=== PATIENT | male | born 1990 | race Caucasian/White ===

== ENCOUNTER 2018-01-03 04:59 | Emergency (ER) | payer OTHER, MEDICAID, SELFPAY ==
[2018-01-03 05:11] VITALS: BP 121/78; PULSE 90; RESP 16; TEMP 36.8; O2SAT 97; BMI 28.0
--- NOTE | 2018-01-03 05:13 | ED_ITS ---
HPI - Male Genitourinary General Chief complaint: Urogenital-Male Stated complaint: BLOOD IN URINE Time Seen by Provider: 01/03/18 05:07 Source: patient, family and RN notes reviewed Mode of arrival: ambulatory Limitations: no limitations History of Present Illness HPI Narrative: Patient is a 27-year-old male who presents with rodriguez bloody urination. He said he urinated this morning and noted there is a large amount of gross blood. He denies any pain. No flank pain. Will he has chronic ongoing left lower and sided abdominal pain. He has a history of Crohn's which he does not take any medicine for he is being followed by his primary care provider for this. His abdominal pain does not seem to be any worse he denies any bloody or loose stool last bowel movement was yesterday and normal. He denies any fever chills nausea vomiting. No blood thinners. No testicle pain. 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 He does not think he has been exposed to any STD he denies any penile discharge. Onset (ago): minute(s) Related Data Home Medications Medication Instructions Recorded Confirmed No Known Home Medications 01/03/18 01/03/18 Allergies Allergy/AdvReac Type Severity Reaction Status Date / Time hydrocodone AdvReac Intermediate Nausea Verified 01/03/18 05:16 Review of Systems Review of Systems All systems reviewed & are unremarkable except as noted in HPI and below Constitutional Denies chills, Denies fever(s), Denies lethargy and Denies weakness Cardiovascular Denies chest pain, Denies irregular heart rhythm, Denies lightheadedness, Denies palpitations, Denies dyspnea, Denies dyspnea on exertion and Denies orthopnea Respiratory Denies cough, Denies dyspnea, Denies dyspnea on exertion and Denies wheezing Genitourinary Reports system reviewed and no additional complaints, except as docu and Reports as per HPI Integumentary/Breasts Denies pruritus, Denies erythema, Denies rash and Denies wounds Neurologic Denies weakness Endocrine Denies palpitations Allergic/Immunologic Denies wheezing [facility] Medical History Crohns disease (Acute) Social History Smoking Status: Never smoker Exam Const General: cooperative and well developed Nutritional Appearance: well nourished Orientation: alert, awake, oriented x3 and not confused Eyes EOM: EOM intact bilaterally Resp Effort & Inspection: normal respiratory effort and able to speak in complete sentences Cardio Pulses: radial pulses present and ulnar radial pulses present Penis: normal penis (with nurse leslye at bedside), no ecchymosis, not edematous , no papules, no paraphimosis and no swelling Testes: normal, testicular lie normal and epididymides normal Skin General: no rashes or lesions noted Lesions: no lesions Rashes: no rashes Neuro General: alert, awake and oriented x3 Cranial Nerves: CN's II-XI intact bilaterally MDM - Male Genitourinary Lab Data Attestation: I reviewed the patient's lab results. Lab Results 01/03/18 Range/Units 06:20 Urine Color Yellow Urine Appearance Clear Urine pH 5.5 (4.5-8.0) Ur Specific [place] 1.020 (1.000-1.035) Urine Protein Negative (NEGATIVE) Urine Glucose (UA) Negative (NEGATIVE) g/dL Urine Ketones Trace H (NEGATIVE) Urine Occult Blood Negative (NEGATIVE) Urine Nitrate Negative (NEGATIVE) Urine Bilirubin Negative (NEGATIVE) Urine Urobilinogen 0.2 (0.2) E.U./dL Ur Leukocyte Esterase Negative (NEGATIVE) Course Orders Ordered: ED Orders 01/03/18 06:20 Urinalysis and Microscopic Stat Reevaluation(s) Reevaluation #1: 200 cc of urine in bladder per bladder scan. Pushing oral fluids will check urine Time: 05:27 Reevaluation #2: Patient urinated urine is clear and yellow no gross blood Time: 06:30 Last Vital Signs Temp 98.3 F 01/03/18 05:11 Pulse 90 01/03/18 05:11 Resp 16 01/03/18 05:11 BP 121/78 H 01/03/18 05:11 Pulse Ox 97 01/03/18 05:11 Discharge Plan Departure Patient Disposition: Home, Self-Care Clinical Impression: Benign hematuria Instructions: Blood in Urine Activity Restrictions/Additional Instructions: *You have been diagnosed with blood in urine *What to do: At this time there is no blood in your urine not even microscopic no sign of infection *Take medications as directed *Follow up with your primary care provider in 2-3 days *Return to ER if you should have any new, worsening or concerning symptoms Prescriptions: No Action No Known Home Medications RF: 0
[2018-01-03 06:26] LABS: Appearance Urine UA CLEAR; Bilirubin Urine UA NEGATIVE (NEGATIVE); Color Urine UA YELLOW; Glucose Urine UA NEGATIVE (NEGATIVE); Ketones Urine UA TRACE (NEGATIVE); Leukocyte Esterase Urine UA NEGATIVE (NEGATIVE); Nitrite Urine UA NEGATIVE (NEGATIVE); Occult Blood Urine UA NEGATIVE (NEGATIVE); Protein Urine UA NEGATIVE (NEGATIVE); Urobilinogen Urine UA 0.2 E.U./dL (0.2); pH Urine UA 5.5 (4.5-8.0)
[2018-01-03 06:33] LABS: Culture Indicated Urine Cult Not Indicated; WBC Urine 0-1/HPF (0-5/HPF)
[2018-01-03 06:37] VITALS: BP 123/76; PULSE 74; RESP 16; O2SAT 98
== END 2018-01-03 06:38 | disposition home or self-care (01) ==
PROVIDERS: Emergency Provider Emergency Medicine
DX: N02.9 Recurrent and persistent hematuria with unspecified morphologic changes (principal)
CPT/HCPCS: 51798; 81001; 99282; 99283

== ENCOUNTER 2018-05-25 04:51 | Emergency (ER) | payer OTHER, MEDICAID, SELFPAY ==
[2018-05-25 05:05] VITALS: BP 129/76; PULSE 92; RESP 18; TEMP 36.7; O2SAT 96; BMI 30.2
--- NOTE | 2018-05-25 05:25 | ED_ITS ---
HPI - General Adult General Chief complaint: Headache Stated complaint: headache sore throat facial pain stomach hurts Time Seen by Provider: 05/25/18 05:09 Source: patient Mode of arrival: ambulatory Limitations: no limitations History of Present Illness HPI narrative: This is a 28-year-old male comes to the emergency department with complaint of upper respiratory congestion, nonproductive cough, headache and sinus pressure, he denies fevers. Symptoms have been for several days. He occasionally feels nauseated. He has not had any vomiting. He is also complaining of a sore throat. Patient has a history of asthma he has not noticed any worsening of his asthma symptoms from his normal. He also has a single kidney and Crohn's disease. Patient has had some ear discomfort but not regularly. He states 9 other people at his work place have had similar symptoms in the last week. He has been taking NyQuil at night time for pain which allows to sleep very well. Related Data Previous Rx's Medication Instructions Recorded fluticasone [Flonase Allergy 1 spray NASAL DAILY #1 package NS 05/25/18 Relief] Allergies Allergy/AdvReac Type Severity Reaction Status Date / Time hydrocodone AdvReac Intermediate Nausea Verified 05/25/18 05:09 Review of Systems Review of Systems All systems reviewed & are unremarkable except as noted in HPI and below Constitutional Denies body ache(s), Denies chills, Denies fever(s), Reports headache(s) and Denies night sweats ENT Ears, Nose, Mouth, and Throat: Denies ear discharge, Reports headache(s), Denies hoarseness, Reports nasal congestion, Denies neck pain, Reports sinus pressure and Reports sore throat Cardiovascular Denies chest pain, Denies irregular heart rhythm, Denies lightheadedness, Denies palpitations, Denies dyspnea, Denies dyspnea on exertion and Denies orthopnea Respiratory Reports cough, Denies excessive phlegm production, Denies dyspnea, Denies dyspnea on exertion and Denies wheezing Gastrointestinal Gastrointestinal: Denies abdominal pain, Denies change in bowel habits, Denies diarrhea, Reports nausea and Denies vomiting Genitourinary Denies dysuria, Denies urinary frequency and Denies urinary urgency Musculoskeletal Denies neck pain Integumentary/Breasts Denies rash Neurologic Reports headache(s) Endocrine Denies palpitations Allergic/Immunologic Denies wheezing [facility] Medical History Single kidney (Acute) Crohns disease (Chronic) Surgical History H/O colonoscopy (Acute) H/O esophagogastroduodenoscopy (Acute) Social History Smoking Status: Never smoker Exam Narrative Exam Narrative: GEN: well nourished, well appearing male, alert and oriented x 3 , patient appears to be in mild distress. HEENT: Atraumatic, pupils are equal round reactive to light, extraocular movements are intact, nares show clear dried rhinorrhea bilaterally, TMs are non erythematous without bulge bilaterally, patient has small amount of fluid in each side are slightly retracted, there is no conjunctival pallor. Throat is clear without any exudates, erythema, tonsillar enlargement or uvular deviation. No hoarseness. Patient has mild bilateral cervical lymphadenopathy. HEART: Regular rate and rhythm without murmur, clicks, rubs. No carotid bruits , pulses are equal in upper and lower extremities LUNGS:Lungs clear to auscultation, no wheezes, rales, crackles, chest moves symmetrically ABD:bowel sounds normal, soft, non-tender, no guarding, rebound, rigidity, no masses noted, no hepatosplenomegaly MSCL: Non-tender, no muscle atrophy\, full range of motion of all 4 extremities. NEURO:CN 2-12 intact, sensation normal Initial Vital Signs Initial Vital Signs: Vital Signs Temperature 98.1 F 05/25/18 05:05 Pulse Rate 92 H 05/25/18 05:05 Respiratory Rate 18 05/25/18 05:05 Blood Pressure 129/76 05/25/18 05:05 Pulse Oximetry 96 05/25/18 05:05 Course Orders Ordered: ED Orders 05/25/18 05:15 Strep Grp A by PCR Rapid Stat Vital Signs - 8 hr 05/25/18 05:05 Temperature 98.1 F Pulse Rate 92 H Respiratory Rate 18 Blood Pressure 129/76 Pulse Oximetry 96 Discharge Plan Departure Patient Disposition: Home Clinical Impression: URI (upper respiratory infection) Instructions: DI for Viral Upper Respiratory Infection -- Adult Activity Restrictions/Additional Instructions: FOllow up with primary care in the next 5-7 days if no improvement of symptoms. Make sure you are drinking plenty of fluids, you may use flonse 1 spray bilateral nostrils twice daiy for symptoms. You may use loratadine/claritin over the counter once daily for symptoms. Return to ER for persistent fevers greater than 100.4F, severe headaches, new vision changes, persistent vomiting, concerns for dehydration, or other new or concerning symptoms. Prescriptions: New fluticasone [Flonase Allergy Relief] 50 mcg/actuation spray,suspension 1 spray NASAL DAILY Qty: 1 RF: 0
[2018-05-25 05:52] LABS: Strep Grp A by PCR Rapid Negative
[2018-05-25 06:07] VITALS: BP 117/78; PULSE 85; RESP 18; O2SAT 97
== END 2018-05-25 06:09 | disposition home or self-care (01) ==
PROVIDERS: Emergency Provider Emergency Medicine
DX: J06.9 Acute upper respiratory infection, unspecified (principal)
CPT/HCPCS: 87651; 99282; 99283

== ENCOUNTER 2018-11-15 06:08 | Emergency (ER) | payer OTHER, MEDICAID, SELFPAY ==
[2018-11-15 06:18] VITALS: BP 120/82; PULSE 67; RESP 20; TEMP 36.4; O2SAT 97; BMI 30.2
--- NOTE | 2018-11-15 06:32 | ED_ITS ---
HPI - Abdominal Pain <Jose Alfredo Chandra DO - Last Filed: 11/16/18 02:42> General Chief Complaint: Abdominal Pain Stated Complaint: States Chron's is flaring up Time Seen by Provider: 11/15/18 06:10 Source: patient Mode of arrival: ambulatory Limitations: no limitations History of Present Illness HPI narrative: Patient is a 28-year-old male. States he has a history of Crohn's disease. He states this was diagnosed by colonoscopy. He also states that he has 1 kidney. This is diagnosed several years ago. He is not currently on any medication for his Crohn's disease. He is currently not under care of any GI provider. He is here today for abdominal pain. Nausea. No vomiting. No blood in the stool. No urinary symptoms. He states that he frequently gets abdominal pain which he describes as his Crohn's flares he states that he has normally able to maintain them at home with adjustment of his diet. He states he was told by his primary doctor that he needs to see a GI doctor but he has not done this. He states he is not on any medications for his Crohn's disease because of his kidney issues. He states that the abdominal pain that he is having today is not the worst pain that he has had in the past. He states that he came in today to get on some medications . Related Data Previous Rx's Medication Instructions Recorded fluticasone propionate [Flonase 1 spray NASAL DAILY #1 package NS 05/25/18 Allergy Relief] prednisone 40 mg PO DAILY #5 tab 11/15/18 Allergies Allergy/AdvReac Type Severity Reaction Status Date / Time hydrocodone AdvReac Intermediate Nausea Verified 05/25/18 05:09 Review of Systems <DO Arlin Orta Last Filed: 11/16/18 02:42> Constitutional Denies fever(s) and Denies headache(s) ENT Ears, Nose, Mouth, and Throat: Denies headache(s) Cardiovascular Denies chest pain and Denies dyspnea Respiratory Denies dyspnea Gastrointestinal Gastrointestinal: Reports abdominal pain, Denies hematochezia, Denies change in stool character, Reports nausea and Denies vomiting Genitourinary Denies dysuria Musculoskeletal Denies myalgias and Denies arthralgias Integumentary/Breasts Denies rash Neurologic Denies headache(s) Hematologic/Lymphatic Denies easy bleeding and Denies easy bruising Allergic/Immunologic Denies urticaria PFSH <DO Arlin Orta Last Filed: 11/16/18 02:42> Medical History Single kidney (Acute) Crohns disease (Chronic) Social History Smoking Status: Never smoker Exam <DO Arlin Orta Last Filed: 11/16/18 02:42> Initial Vital Signs Initial Vital Signs: Vital Signs Temperature 97.5 F L 11/15/18 06:18 Pulse Rate 67 11/15/18 06:18 Respiratory Rate 20 11/15/18 06:18 Blood Pressure 120/82 11/15/18 06:18 Pulse Oximetry 97 11/15/18 06:18 Const General: cooperative, comfortable, well developed, well groomed and No acute distress Orientation: alert and awake HENMT Head: normal to inspection and normocephalic Resp Effort & Inspection: normal respiratory effort Cardio Rate: regular rate Rhythm: regular rhythm GI Inspection: non-distended Palpation: soft, No firm, No guarding and tender (Diffuse abdominal tenderness without rebound or guarding) Skin Lesions: no lesions Rashes: no rashes Neuro General: alert and awake Cognition: normal cognition Extrem General: normal to inspection and capillary refill normal <Marcia Alcantar DO - Last Filed: 11/15/18 20:32> Initial Vital Signs Initial Vital Signs: Vital Signs Temperature 97.5 F L 11/15/18 06:18 Pulse Rate 67 11/15/18 06:18 Respiratory Rate 20 11/15/18 06:18 Blood Pressure 120/82 11/15/18 06:18 Pulse Oximetry 97 11/15/18 06:18 Scores <DO Arlin Orta Last Filed: 11/16/18 02:42> GCS Gayle coma scale eye opening: Spontaneous Lawrence coma scale verbal response: Orientated Gayle coma scale motor response: Obey commands Gayle coma scale total score: 15 Course <DO Arlin Orta Last Filed: 11/16/18 02:42> Orders Ordered: ED Orders 11/15/18 07:35 Complete Blood Count AUTO DIFF Stat Comprehensive Metabolic Panel Stat Lipase Stat Vital Signs - 8 hr 11/15/18 06:18 Temperature 97.5 F L Pulse Rate 67 Respiratory Rate 20 Blood Pressure 120/82 Pulse Oximetry 97 <Marcia Alcantar, DO - Last Filed: 11/15/18 20:32> Orders Ordered: ED Orders 11/15/18 07:35 Complete Blood Count AUTO DIFF Stat Comprehensive Metabolic Panel Stat Lipase Stat Vital Signs - 8 hr 11/15/18 06:18 Temperature 97.5 F L Pulse Rate 67 Respiratory Rate 20 Blood Pressure 120/82 Pulse Oximetry 97 MDM - Abdominal Pain <Jose Alfredo Chandra DO - Last Filed: 11/16/18 02:42> Lab Data Result diagrams: 11/15/18 07:35 11/15/18 07:35 Lab Results 11/15/18 11/15/18 Range/Units 07:35 07:35 WBC 6.9 (4.5-11.0) X10^3/uL RBC 5.15 (4.5-5.9) X10^6/uL Hgb 15.3 (13.5-17.5) g/dL Hct 44.5 (41-53) % MCV 86.4 (80-100) fL MCH 29.8 (26-34) PG MCHC 34.5 (30-36) % RDW 13.0 (11.6-14.8) % Plt Count 258 (150-400) X10^3/uL Neut % (Auto) 62.2 (50-75) % Lymph % (Auto) 27.4 (25-40) % [place] % (Auto) 8.4 (3-14) % Eos % (Auto) 1.3 L (2-4) % Baso % (Auto) 0.7 (0-2) % Neut # (Auto) 4300 (6493-4040) /uL Lymph # (Auto) 1900 (0320-0474) /uL [place] # (Auto) 600 (0-900) /uL Eos # (Auto) 100 (0-450) /uL Baso # (Auto) 0 (0-100) /uL Sodium 140 (137-145) mmol/L Potassium 4.3 (3.4-5.1) mmol/L Chloride 105 (98-107) mmol/L Carbon Dioxide 22 (22-32) mmol/L BUN 15 (9-20) mg/dL Creatinine 1.00 (0.66-1.25) mg/dL Estimated GFR > 60.0 (>60) mL/min BUN/Creatinine Ratio 15.0 (6-22) Glucose 104 H (70-100) mg/dL Calcium 9.1 (8.4-10.2) mg/dL Total Bilirubin 0.5 (0.2-1.3) mg/dL AST 45 (17-59) IU/L ALT 96 H (21-72) IU/L Alkaline Phosphatase 54 (38-126) U/L Total Protein 7.4 (6.3-8.2) g/dL Albumin 4.5 (3.5-5.0) g/dL Globulin 2.9 (1.7-4.1) g/dL Albumin/Globulin Ratio 1.6 (1.0-2.8) Lipase 36 (23-300) U/L MDM Narrative Medical decision making narrative: Has a benign abdominal exam. Is afebrile. H as some nausea but no vomiting. No blood in his stool. He states that this is not the worse abdominal pain that he has had in the past. Will check kidney function to see if budesonide is appropriate. Care turned over to day provider at change of shift to follow up on labs and further disposition. <Marcia Alcantar, DO - Last Filed: 11/15/18 20:32> Lab Data Attestation: I reviewed the patient's lab results. Lab Results 11/15/18 11/15/18 Range/Units 07:35 07:35 WBC 6.9 (4.5-11.0) X10^3/uL RBC 5.15 (4.5-5.9) X10^6/uL Hgb 15.3 (13.5-17.5) g/dL Hct 44.5 (41-53) % MCV 86.4 (80-100) fL MCH 29.8 (26-34) PG MCHC 34.5 (30-36) % RDW 13.0 (11.6-14.8) % Plt Count 258 (150-400) X10^3/uL Neut % (Auto) 62.2 (50-75) % Lymph % (Auto) 27.4 (25-40) % [place] % (Auto) 8.4 (3-14) % Eos % (Auto) 1.3 L (2-4) % Baso % (Auto) 0.7 (0-2) % Neut # (Auto) 4300 (6657-1619) /uL Lymph # (Auto) 1900 (7790-1283) /uL [place] # (Auto) 600 (0-900) /uL Eos # (Auto) 100 (0-450) /uL Baso # (Auto) 0 (0-100) /uL Sodium 140 (137-145) mmol/L Potassium 4.3 (3.4-5.1) mmol/L Chloride 105 (98-107) mmol/L Carbon Dioxide 22 (22-32) mmol/L BUN 15 (9-20) mg/dL Creatinine 1.00 (0.66-1.25) mg/dL Estimated GFR > 60.0 (>60) mL/min BUN/Creatinine Ratio 15.0 (6-22) Glucose 104 H (70-100) mg/dL Calcium 9.1 (8.4-10.2) mg/dL Total Bilirubin 0.5 (0.2-1.3) mg/dL AST 45 (17-59) IU/L ALT 96 H (21-72) IU/L Alkaline Phosphatase 54 (38-126) U/L Total Protein 7.4 (6.3-8.2) g/dL Albumin 4.5 (3.5-5.0) g/dL Globulin 2.9 (1.7-4.1) g/dL Albumin/Globulin Ratio 1.6 (1.0-2.8) Lipase 36 (23-300) U/L MDM Narrative Medical decision making narrative: I discussed with patient his lab work patient is not sure if he wants a prescription for any medication. We discussed why he came today he is a little unclear. We did discuss that I would recommend he see Gastroenterology and Nephrology he states he has seen nephrology. He has also seen a nuclear equipment research engineer but about 12 years ago. Discussed that there may be new or medications that would be safe for his kidneys besides prednisone. He states that he had an appointment but he has difficulty keeping them because he has a 6 month window before he can be seen and he forgets to take the day off work. We discussed trying to set a reminder or something else that would help allow him to follow up. Patient is comfortable at this time he feels comfortable returning home. We discussed risks versus benefits of prednisone. He is unsure if he will take the medication. I did recommend he least follow up with his primary care. Discharge Plan Departure Patient Disposition: Home Clinical Impression: Abdominal pain, Crohn's disease Discharge Date/Time: 11/15/18 09:00 Interventions: ED Discharge Assessment Last Done: 11/15/18 08:59 Instructions: DI for Crohn's Disease Activity Restrictions/Additional Instructions: Follow up with your physician and gastroenterology for your Crohn's. Take prednisone once daily until gone. Take this medication with food. Return to the emergency department for fevers greater than 100.4, rapidly worsening abdominal pain, persistent vomiting, black or bloody stools, difficulty with urination, passing out or other new or concerning symptoms. Prescriptions: New prednisone 20 mg tablet 40 mg PO DAILY Qty: 5 RF: 0 No Action fluticasone propionate [Flonase Allergy Relief] 50 mcg/actuation spray,suspension 1 spray NASAL DAILY Qty: 1 RF: 0 Stand Alone Forms: Work Release Note
[2018-11-15 07:59] LABS: Add Manual Diff / Slide Review NO; Basophils Absolute Auto 0 /uL (0-100); Basophils Percent Auto 0.7 % (0-2); Eosinophils Absolute Auto 100 /uL (0-450); Eosinophils Percent Auto 1.3 % (2-4); Hematocrit 44.5 % (41-53); Hemoglobin 15.3 g/dL (13.5-17.5); Lymphocytes Absolute Auto 1900 /uL (1100-4500); Lymphocytes Percent Auto 27.4 % (25-40); Mean Corpuscular HGB Conc 34.5 % (30-36); Mean Corpuscular Hemoglobin 29.8 PG (26-34); Mean Corpuscular Volume 86.4 fL (80-100); Monocytes Absolute Auto 600 /uL (0-900); Monocytes Percent Auto 8.4 % (3-14); Neutrophils Absolute Auto 4300 /uL (1500-7000); Neutrophils Percent Auto 62.2 % (50-75); Platelet Count 258 X10^3/uL (150-400); Red Blood Cell Count 5.15 X10^6/uL (4.5-5.9); White Blood Cell Count 6.9 X10^3/uL (4.5-11.0)
[2018-11-15 08:11] LABS: Alanine Aminotransferase 96 IU/L (21-72); Albumin 4.5 g/dL (3.5-5.0); Albumin Globulin Ratio 1.6 (1.0-2.8); Alkaline Phosphatase 54 U/L (38-126); Aspartate Aminotransferase 45 IU/L (17-59); Bilirubin Total 0.5 mg/dL (0.2-1.3); Blood Urea Nitrogen 15 mg/dL (9-20); Calcium 9.1 mg/dL (8.4-10.2); Carbon Dioxide 22 mmol/L (22-32); Chloride 105 mmol/L (98-107); Estimated Glomerular Filt Rate > 60.0 mL/min (>60); Globulin 2.9 g/dL (1.7-4.1); Glucose 104 mg/dL (70-100); HEMOLYSIS < 15 (0-50); Lipase 36 U/L (23-300); Potassium 4.3 mmol/L (3.4-5.1); Sodium 140 mmol/L (137-145); Total Protein 7.4 g/dL (6.3-8.2)
== END 2018-11-15 09:00 | disposition home or self-care (01) ==
PROVIDERS: Emergency Medicine; Emergency Provider Emergency Medicine
DX: K50.90 Crohn's disease, unspecified, without complications (principal)
CPT/HCPCS: 36415; 36591; 80053; 83690; 85025; 99282; 99283

== ENCOUNTER 2019-04-04 05:06 | Emergency (ER) | payer OTHER, MEDICAID, SELFPAY ==
[2019-04-04 05:19] VITALS: BP 129/89; PULSE 72; RESP 16; O2SAT 99; BMI 30.2
--- NOTE | 2019-04-04 07:26 | ED.UPPEXIN ---
HPI - Extremity Injury (Upper) General Chief Complaint: Extremity Injury, Upper Stated Complaint: LEFT SHOULDER INJURY 3 WEEKS AGO, PAIN Time Seen by Provider: 04/04/19 05:08 Source: patient Mode of arrival: ambulatory Limitations: no limitations History of Present Illness HPI narrative: 29-year-old male nonsmoker and social drinker with benign medical history presents with his significant other in the chief complaint of a left shoulder injury suffered at work about 3 weeks ago. 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 Since then he has had increasing pain with range of motion and some numbness in his left index finger. He feels okay when he rests. He denies other injuries. He is otherwise free of complaint MD complaint: injury to: left and shoulder Onset (ago): week(s) Other injuries: none Handedness: right Place: work Severity: moderate Relieving factors: immobilization and medication Exacerbating factors: movement of extremity Associated symptoms: numbness Related Data Previous Rx's Medication Instructions Recorded fluticasone propionate [Flonase 1 spray NASAL DAILY #1 package NS 05/25/18 Allergy Relief] prednisone 40 mg PO DAILY #5 tab 11/15/18 Allergies Allergy/AdvReac Type Severity Reaction Status Date / Time hydrocodone AdvReac Intermediate Nausea Verified 05/25/18 05:09 Review of Systems Constitutional Denies chills, Denies fever(s), Denies lethargy and Denies weakness Eyes Denies change in vision, Denies eye discharge, Denies irritation and Denies loss of vision ENT Ears, Nose, Mouth, and Throat: Denies change in voice, Denies neck pain and Denies sore throat Cardiovascular Denies chest pain, Denies irregular heart rhythm, Denies lightheadedness, Denies palpitations, Denies dyspnea, Denies dyspnea on exertion and Denies orthopnea Respiratory Denies cough, Denies dyspnea, Denies dyspnea on exertion and Denies wheezing Gastrointestinal Gastrointestinal: Denies abdominal pain, Denies change in bowel habits, Denies diarrhea, Denies nausea and Denies vomiting Genitourinary Denies hematuria, Denies flank pain, Denies urinary incontinence and Denies urinary urgency Musculoskeletal Reports limited range of motion and Denies neck pain Integumentary/Breasts Denies pruritus, Denies erythema, Denies rash and Denies wounds Neurologic Denies confusion, Denies loss of vision and Denies weakness Psychiatric Denies anxiety, Denies confusion, Denies depression, Denies homicidal ideation and Denies suicidal ideation Endocrine Denies palpitations Hematologic/Lymphatic Denies easy bruising Allergic/Immunologic Denies wheezing [facility] Medical History Single kidney (Acute) Crohns disease (Chronic) Surgical History H/O colonoscopy (Acute) H/O esophagogastroduodenoscopy (Acute) Social History Smoking Status: Never smoker Social History Smoking Status: Never smoker Exam Narrative Exam Narrative: GEN: AOx3 and in mild distress EYES: Pupils are equal, round, and reactive to light and accommodation. Extraoccular muscles are intact bilaterally. There is no subconjunctival hemorrhage or exudate. CHEST: Lungs are clear to auscultation bilaterally and free of wheezes, rales, or rhonchi. Heart rate is regular rhythm, there are no murmurs, clicks, rubs, or gallops. There is no chest wall tenderness. ABD: Abdomen is soft and nontender. There is no guarding or rebound. Bowel sounds are normal in all 4 quadrants. There is no mass or organomegaly. EXT: Full but painful range of motion at the left shoulder with 5/5 strength. Patient has reproducible pain along the long head of the biceps tendon as well as along the distribution of the supraspinatus as evidenced by the empty can test. He has no obvious neurologic deficit. SKIN: Warm, pink, and dry. No erythema or rash Initial Vital Signs Initial Vital Signs: Vital Signs Pulse Rate 72 04/04/19 05:19 Respiratory Rate 16 04/04/19 05:19 Blood Pressure 129/89 04/04/19 05:19 Pulse Oximetry 99 04/04/19 05:19 Procedures Orthopedic Splinting/Casting Injury #1: Side: left Upper Extremity Injury Location: shoulder Upper Extremity Immobilizer: sling/shoulder immobilizer Post splinting neuro exam: intact Post splinting vascular exam: intact Placed by: Nursing Course Vital Signs - 8 hr 04/04/19 05:19 Pulse Rate 72 Respiratory Rate 16 Blood Pressure 129/89 Pulse Oximetry 99 MDM - Extremity Injury (Upper) MDM Narrative Medical decision making narrative: 29-year-old healthy male with full but painful range of motion of the left shoulder with a 3 week history of above-stated symptoms. No bony point tenderness and no direct trauma. We discussed doing an x-ray, in fact I recommended given the fact that it is a work related injury but he refused. He has intact strength and neurovascular exam. Improved symptoms with splint. Return precautions given, questions answered to his apparent satisfaction Discharge Plan Departure Patient Disposition: Home Clinical Impression: Rotator cuff injury Qualifiers: Encounter type: initial encounter Laterality: left Qualified Code(s): S46.002A - Unspecified injury of muscle(s) and tendon(s) of the rotator cuff of left shoulder, initial encounter Discharge Date/Time: 04/04/19 05:43 Interventions: ED Discharge Assessment Last Done: 04/04/19 05:43 Instructions: DI for Shoulder Sprain Activity Restrictions/Additional Instructions: *You have been diagnosed with [left shoulder sprain] *What to do: *Take medications as directed *Follow up with your primary care provider in 2-3 days, call for an appointment. Let them know you were seen in the Emergency Department and that we ask that you be seen in follow up *Return to ER if you should have any new, worsening or concerning symptoms Prescriptions: No Action fluticasone propionate [Flonase Allergy Relief] 50 mcg/actuation spray,suspension 1 spray NASAL DAILY Qty: 1 RF: 0 prednisone 20 mg tablet 40 mg PO DAILY Qty: 5 RF: 0 Stand Alone Forms: Work Release Note
== END 2019-04-04 05:43 | disposition home or self-care (01) ==
PROVIDERS: Emergency Provider Emergency Medicine
DX: S46.002A Unspecified injury of muscle(s) and tendon(s) of the rotator cuff of left shoulder, initial encounter (principal); X50.0XXA Overexertion from strenuous movement or load, initial encounter; Y99.0 Civilian activity done for income or pay
CPT/HCPCS: 99282

== ENCOUNTER 2019-07-10 22:12 | Emergency (ER) | payer OTHER, MEDICAID, SELFPAY ==
[2019-07-10 22:15] VITALS: BP 139/81; PULSE 114; RESP 20; TEMP 37.2; O2SAT 98
[2019-07-10 22:39] LABS: Influenza A and B by PCR Rapid Negative (Negative)
--- NOTE | 2019-07-10 22:59 | DI.RAD.S_ITS ---
PROCEDURE: XR CHEST 2V INDICATIONS: fever, cough TECHNIQUE: 2 views of the chest were acquired. COMPARISON: None. FINDINGS: Surgical changes and devices: None. Lungs and pleura: Lungs are clear. No pleural effusions or pneumothorax. Mediastinum: Mediastinal contours are normal. Heart size is normal. Bones and chest wall: No suspicious bony abnormalities. Soft tissues appear unremarkable. IMPRESSION: No acute cardiopulmonary disease process. Dictated by: Angelina Fuentes MD, PhD on 07/11/2019 at 8:47 Approved by: Angelina Fuentes MD, PhD on 07/11/2019 at 8:47
--- NOTE | 2019-07-10 22:59 | ED_ITS ---
HPI - Fever General Chief Complaint: Fever Stated Complaint: EYE HURT THROWING UP FEVER COUGH Time Seen by Provider: 07/10/19 22:20 Source: patient Mode of arrival: Ambulatory Limitations: no limitations History of Present Illness HPI Narrative: 29-year-old male nonsmoker with noncontributory medical history presents with a chief complaint of subjective fever, runny nose, sore throat, cough, episodes of vomiting and right ear pain over the past few days. He denies any exposure to ill persons. He does admit to some left frontal headache that seems to be worse when he leans forward. He does have a runny nose but denies any purulence drainage. Though he mentions fever he denies actually measuring his temperature. MD complaint: fever Onset (ago): hour(s) Temperature Source: subjective Associated symptoms: headache, rhinorrhea, nasal congestion, sore throat, cough, nausea and vomiting Relieving factors: nothing Exacerbating factors: nothing Related Data Previous Rx's Medication Instructions Recorded fluticasone propionate [Flonase 1 spray NASAL DAILY #1 package NS 05/25/18 Allergy Relief] prednisone 40 mg PO DAILY #5 tab 11/15/18 ketorolac 10 mg PO Q6H PRN #14 tab 07/11/19 ondansetron 4 mg PO TID-QID PRN #10 tab 07/11/19 Allergies Allergy/AdvReac Type Severity Reaction Status Date / Time hydrocodone AdvReac Intermediate Nausea Verified 05/25/18 05:09 Review of Systems Constitutional Constitutional: Denies chills, Denies fatigue, Reports fever(s), Denies frequent falls, Denies lethargy and Denies weakness Eyes Eyes: Denies change in vision, Denies eye discharge, Denies irritation and Denies loss of vision ENT Ears, Nose, Mouth, and Throat: Denies change in voice, Denies dizziness, Reports otalgia, Denies neck pain, Reports sinus pressure, Reports sore throat and Denies throat swelling Cardiovascular Cardiovascular: Denies chest pain, Denies irregular heart rhythm, Denies lightheadedness, Denies palpitations, Denies dyspnea, Denies dyspnea on exertion and Denies orthopnea Respiratory Respiratory: Reports cough, Denies dyspnea, Denies dyspnea on exertion and Denies wheezing Gastrointestinal Gastrointestinal: Denies abdominal pain, Denies change in bowel habits, Denies diarrhea, Denies nausea and Denies vomiting Genitourinary Genitourinary: Denies hematuria, Denies flank pain, Denies urinary incontinence and Denies urinary urgency Musculoskeletal Musculoskeletal: Denies back pain, Denies muscle weakness, Denies neck pain, Denies numbness and Denies tingling Integumentary/Breasts Skin/Breast: Denies pruritus, Denies erythema, Denies rash and Denies wounds Neurologic Neurologic: Denies behavioral changes, Denies confusion, Denies dizziness, Denies frequent falls, Denies loss of vision, Denies numbness, Denies tingling and Denies weakness Psychiatric Psychiatric: Denies anxiety, Denies behavioral changes, Denies confusion, Denies depression, Denies homicidal ideation and Denies suicidal ideation Endocrine Endocrine: Denies fatigue, Denies flushing and Denies palpitations Hematologic/Lymphatic Hematologic/Lymphatic: Denies easy bruising Allergic/Immunologic Allergic/Immunologic: Denies urticaria, Denies throat swelling and Denies wheezing Patient History Medical History Crohns disease (Chronic) Single kidney (Acute) Surgical History H/O colonoscopy (Acute) H/O esophagogastroduodenoscopy (Acute) Social History Smoking Status: Never smoker alcohol intake frequency: 0-2 drinks per day Substance Use Type: marijuana Exam Narrative Exam Narrative: GENERAL: [29] year old patient appears stated age. Well- nourished, well-developed patient, in mild distress. HEAD: Atraumatic. Normocephalic. Tender over left frontal sinus EYES: Pupils equal round and reactive. Extraocular motions intact. No scleral icterus. No injection or drainage. ENT: Clear postnasal drip Nose without bleeding, purulent drainage. Throat without erythema, tonsillar hypertrophy or exudate. Airway patent. NECK: Trachea midline. Non tender CARDIOVASCULAR: Regular rate and rhythm without murmurs, gallops, or rubs. RESPIRATORY: Clear to auscultation. Breath sounds equal bilaterally. No wheezes, rales, or rhonchi. GASTROINTESTINAL: Abdomen soft, non-tender, nondistended. EXTREMITIES: No edema or joint tenderness. BACK: Nontender without deformity or crepitance. No flank tenderness. NEURO: AOx3. SKIN: No rash or erythema of visible areas Initial Vital Signs Initial Vital Signs: Vital Signs Temperature 99.0 F 07/10/19 22:15 Pulse Rate 114 H 07/10/19 22:15 Respiratory Rate 20 07/10/19 22:15 Blood Pressure 139/81 07/10/19 22:15 Pulse Oximetry 98 07/10/19 22:15 Course Orders Ordered: ED Orders 07/10/19 22:18 Influenza A and B by PCR Rapid Stat 07/10/19 22:59 XR chest 2V Stat Discontinued Medications Ketorolac Tromethamine (Toradol) 60 mg IM NOW ONE Stop: 07/11/19 00:17 Last Admin: 07/11/19 00:25 Dose: 60 mg Documented by: CHRIS Ondansetron HCl (Zofran Odt Prepack) 1 bottle MISC SEEINSTR ONE Stop: 07/11/19 00:17 Last Admin: 07/11/19 00:26 Dose: 1 bottle Documented by: CHRIS Vital Signs Vital signs: Vital Signs - 8 hr 07/10/19 22:15 07/11/19 00:46 Temperature 99.0 F Pulse Rate 114 H 92 H Respiratory Rate 20 14 Blood Pressure 139/81 141/88 H Pulse Oximetry 98 99 MDM - Fever Lab Data Labs: Lab Results 07/10/19 Range/Units 22:18 Influenza A & B (PCR) Negative (Negative) Imaging Data Chest x-ray: Attestation: I personally reviewed and interpreted this imaging study as follows: My impression: No acute process Discharge Plan Departure Patient Disposition: Home Clinical Impression: Upper respiratory virus Discharge Date/Time: 07/11/19 00:47 Instructions: Common Cold Activity Restrictions/Additional Instructions: *You have been diagnosed with [acute viral upper respiratory infection] *What to do: *Take medications as directed *Follow up with your primary care provider in 2-3 days, call for an appointment. Let them know you were seen in the Emergency Department and that we ask that you be seen in follow up *Return to ER if you should have any new, worsening or concerning symptoms Prescriptions: New ketorolac 10 mg tablet 10 mg PO Q6H PRN (Reason: pain) Qty: 14 RF: 0 ondansetron 4 mg tablet,disintegrating 4 mg PO TID-QID PRN (Reason: nausea and vomiting) Qty: 10 RF: 0 No Action fluticasone propionate [Flonase Allergy Relief] 50 mcg/actuation spray,suspension 1 spray NASAL DAILY Qty: 1 RF: 0 prednisone 20 mg tablet 40 mg PO DAILY Qty: 5 RF: 0
[2019-07-11] MEDS: KETOROLAC 60 MG/2 ML VIAL IM (00:25)
[2019-07-11] MEDS: ONDANSETRON 4 MG ODT PREPACK 1 BOTTLE MISC (00:26)
[2019-07-11 00:46] VITALS: BP 141/88; PULSE 92; RESP 14; O2SAT 99
== END 2019-07-11 00:47 | disposition home or self-care (01) ==
PROVIDERS: Emergency Provider Emergency Medicine
DX: J06.9 Acute upper respiratory infection, unspecified (principal)
CPT/HCPCS: 71046; 87502; 96372; 99282; 99283; J1885